=== PATIENT | female | born 1995 | race Two or more races ===

== ENCOUNTER 2017-06-07 19:06 | Emergency (ER) | payer OTHER ==
[~2017-06-07] VITALS: Ht 157.5 cm; Wt 64.4 kg
[~2017-06-07 19:06] MED LIST: METR500T PO; NAPR500T8 PO; ONDA4TAB12 PO; SULF1TAB24 PO
--- NOTE | 2017-06-07 19:12 | ED.ADGEN ---
Past History Past Medical History: No Pertinent History Past Surgical History: No Surgical History Alcohol Use: Rarely Drug Use: None Adult General Chief Complaint Chief Complaint " I was just setting on the couch... Tuesday... and my Rt. knee started hurting.. right here... the knee bone... I don't think I hurt it or any thing.. It hurt before .. but never this long..." HPI HPI Patient is a 22 year old female who presents with above hx and possible Rt. knee injury or inflammatory disorder. Pt. has had intermittent episodes of right knee pain. No specific history of injury. Knee is obviously swollen but no fluid wave. Can do straight leg lift. Distal neurovascular intact. Does have a limp with right knee. No specific isolation of contralateral, anterior cruciate and posterior cruciate do not have isolated pain. No click with range of motion. Knee is not warmer than the Lt. knee. Review of Systems Review of Systems Constitutional: Denies fever or chills [] Eyes: Denies change in visual acuity, redness, or eye pain [] HENT: Denies nasal congestion or sore throat [] Respiratory: Denies cough or shortness of breath [] Cardiovascular: No additional information not addressed in HPI [] GI: Denies abdominal pain, nausea, vomiting, bloody stools or diarrhea [] : Denies dysuria or hematuria [] Musculoskeletal: Denies back pain or joint pain []Complaints of Rt Knee pain. Integument: Denies rash or skin lesions [] Neurologic: Denies headache, focal weakness or sensory changes [] Endocrine: Denies polyuria or polydipsia [] All other systems were reviewed and found to be within normal limits, except as documented in this note. Family History Family History Hx arthritis in family Current Medications Current Medications Current Medications Medications (Trade) Dose Ordered Sig/Meagan Start Time Stop Time Status Last Admin Dose Admin Ceftriaxone Sodium 2 gm/ Sodium Chloride 100 ml @ 200 mls/hr 1X ONCE 06/07/17 21:15 06/07/17 21:15 DC Ceftriaxone Sodium (Rocephin Im) 2 gm 1X ONCE 06/07/17 21:30 06/07/17 21:31 DC 06/07/17 21:38 2 GM Ceftriaxone Sodium (Rocephin) 2 gm 1X ONCE 06/07/17 21:15 06/07/17 21:16 DC See nursing for home meds. Allergies Allergies Allergies Coded Allergies Type Severity Reaction Last Updated Verified No Known Drug Allergies 09/12/15 No Physical Exam Physical Exam Constitutional: Moderately acute distress, non-toxic appearance. [] HENT: Normocephalic, atraumatic, bilateral external ears normal, oropharynx moist, no oral exudates, nose normal. [] Eyes: PERRLA, EOMI, conjunctiva normal, no discharge. [] Neck: Normal range of motion, no tenderness, supple, no stridor. [] Cardiovascular:Heart rate regular rhythm, no murmur [] Lungs & Thorax: Bilateral breath sounds clear to auscultation [] Abdomen: Bowel sounds normal, soft, no tenderness, no masses, no pulsatile masses. [] Skin: Warm, dry, no erythema, no rash. [] Back: No tenderness, no CVA tenderness. [] Extremities: Rt. knee tenderness, no cyanosis, no clubbing, ROM intact, Rt knee edema. [] Neurologic: Alert and oriented X 3, normal motor function, normal sensory function, no focal deficits noted. [] Psychologic: Affect normal, judgement normal, mood normal. [] Current Patient Data Lab Results Laboratory Tests Test 06/07/17 19:21 06/07/17 19:30 06/07/17 19:37 06/07/17 20:00 White Blood Count 8.9 x10^3/uL (4.0-11.0) Red Blood Count 4.26 x10^6/uL (3.50-5.40) Hemoglobin 12.2 g/dL (12.0-15.5) Hematocrit 35.5 % (36.0-47.0) L Mean Corpuscular Volume 83 fL (79-100) Mean Corpuscular Hemoglobin 29 pg (25-35) Mean Corpuscular Hemoglobin Concent 34 g/dL (31-37) Red Cell Distribution Width 13.1 % (11.5-14.5) Platelet Count 315 x10^3/uL (140-400) Neutrophils (%) (Auto) 62 % (31-73) Lymphocytes (%) (Auto) 29 % (24-48) Monocytes (%) (Auto) 8 % (0-9) Eosinophils (%) (Auto) 1 % (0-3) Basophils (%) (Auto) 0 % (0-3) Neutrophils # (Auto) 5.5 x10^3uL (1.8-7.7) Lymphocytes # (Auto) 2.6 x10^3/uL (1.0-4.8) Monocytes # (Auto) 0.7 x10^3/uL (0.0-1.1) Eosinophils # (Auto) 0.1 x10^3/uL (0.0-0.7) Basophils # (Auto) 0.0 x10^3/uL (0.0-0.2) Urine Collection Type Unknown Urine Color Yellow Urine Clarity Hazy Urine pH 6.0 Urine Specific [place] 1.025 Urine Protein Neg (NEG-TRACE) Urine Glucose (UA) Neg mg/dL (NEG) Urine Ketones (Stick) Neg mg/dL (NEG) Urine Blood Small (NEG) Urine Nitrite Neg (NEG) Urine Bilirubin Neg (NEG) Urine Urobilinogen Dipstick 0.2 mg/dL (0.2 mg/dL) Urine Leukocyte Esterase Trace (NEG) Urine RBC 1-2 /HPF (0-2) Urine WBC 5-10 /HPF (0-4) Urine Squamous Epithelial Cells Few /LPF Urine Bacteria Mod /HPF (0-FEW) Urine Mucus Slight /LPF POC Urine HCG, Qualitative hcg negative (Negative) Sodium Level 141 mmol/L (136-145) Potassium Level 3.7 mmol/L (3.5-5.1) Chloride Level 106 mmol/L (98-107) Carbon Dioxide Level 25 mmol/L (21-32) Anion Gap 10 (6-14) Blood Urea Nitrogen 10 mg/dL (7-20) Creatinine 0.5 mg/dL (0.6-1.0) L Estimated GFR (Cockcroft-Gault) 155.7 BUN/Creatinine Ratio 20 (6-20) Glucose Level 116 mg/dL (70-99) H Uric Acid 3.6 mg/dL (2.6-6.0) Calcium Level 8.6 mg/dL (8.5-10.1) Total Bilirubin 0.2 mg/dL (0.2-1.0) Aspartate Amino Transferase (AST) 11 U/L (15-37) L Alanine Aminotransferase (ALT) 11 U/L (14-59) L Alkaline Phosphatase 51 U/L (46-116) Total Protein 7.1 g/dL (6.4-8.2) Albumin 3.5 g/dL (3.4-5.0) Albumin/Globulin Ratio 1.0 (1.0-1.7) EKG EKG [] Radiology/Procedures Radiology/Procedures [] Course & Med Decision Making Course & Med Decision Making Pertinent Labs and Imaging studies reviewed. (See chart for details) Pt. to wear brenda wrap, ice packs, crutches,elevation and follow up with orthro at [facility]. Take Keflex 500 three times a day and follow up UA and pending labs. [] Final Impression Final Impression 1. Rt Knee- Pain[] 2. UTI Problems: Dragon Disclaimer Dragon Disclaimer This electronic medical record was generated, in whole or in part, using a voice recognition dictation system. HARMAN LE MD Jun 07, 2017 19:12
[2017-06-07] MEDS ORDERED: HYDR-79 PO (19:30)
[2017-06-07 20:13] LABS: BACTERIA,URINE MOD /HPF (0-FEW); BILIRUBIN,URINE NEG (NEG); CLARITY,URINE HAZY; COLOR,URINE YELLOW; GLUCOSE,URINE NEG (NEG); NITRITE,URINE NEG (NEG); SQUAMOUS EPITHELIAL CELL,UR FEW /LPF; UROBILINOGEN,URINE 0.2 mg/dL (0.2 mg/dL)
[2017-06-07 20:24] LABS: BASO % 0 % (0-3); EOS # 0.1 x10^3/uL (0.0-0.7); EOS % 1 % (0-3); HEMATOCRIT 35.5 % (36.0-47.0); HEMOGLOBIN 12.2 g/dL (12.0-15.5); LYMPH # 2.6 x10^3/uL (1.0-4.8); LYMPH % 29 % (24-48); MEAN CORPUSCULAR HEMOGLOBIN 29 pg (25-35); MEAN CORPUSCULAR HGB CONC 34 g/dL (31-37); MEAN CORPUSCULAR VOLUME 83 fL (79-100); MONO # 0.7 x10^3/uL (0.0-1.1); MONO % 8 % (0-9); NEUT # 5.5 x10^3uL (1.8-7.7); NEUT % 62 % (31-73); PLATELET COUNT 315 x10^3/uL (140-400); RED BLOOD COUNT 4.26 x10^6/uL (3.50-5.40); RED CELL DISTRIBUTION WIDTH 13.1 % (11.5-14.5); WHITE BLOOD COUNT 8.9 x10^3/uL (4.0-11.0)
[2017-06-07 20:33] LABS: ALBUMIN 3.5 g/dL (3.4-5.0); CALCIUM 8.6 mg/dL (8.5-10.1); CREATININE 0.5 mg/dL (0.6-1.0); GFR 155.7; POTASSIUM 3.7 mmol/L (3.5-5.1); TOTAL BILIRUBIN 0.2 mg/dL (0.2-1.0); TOTAL PROTEIN 7.1 g/dL (6.4-8.2); URIC ACID 3.6 mg/dL (2.6-6.0)
[2017-06-07] MEDS ORDERED: CEPH-264 PO (21:06)
[2017-06-07] MEDS ORDERED: FLUC150T PO (21:06)
[2017-06-07] MEDS ORDERED: cefTRIAXone IV Push 2 GM VIAL. IVP ONE (21:15)
[2017-06-07] MEDS ORDERED: cefTRIAXone IV Push 1 GM VIAL. IVP ONE (21:15)
[2017-06-07] MEDS ORDERED: cefTRIAXone IM 1 GM VIAL IM ONE (21:30)
[2017-06-07 21:47] VITALS: BP 99/61
--- NOTE | 2017-06-08 07:29 | RAD ---
Right knee radiograph 06/07/2017 9:21 PM Indication: Right knee pain and swelling Comparison: None available Technique: 4 views of the right knee are provided. Findings: There is no acute fracture or dislocation. There is a moderate knee joint effusion. No joint space narrowing. No soft tissue swelling. No osseous erosion or soft tissue gas. Bone mineralization is within normal limits. Impression: No acute fracture or dislocation. There is a moderate knee joint effusion. If there is concern for internal derangement, further evaluation with MRI may be of benefit.
[2017-06-08 21:08] LABS: RHEUMATOID FACTOR <10.0 IU/mL (0.0-13.9)
[2017-06-09 10:10] LABS: HCV ANTIBODY <0.1 s/co ratio (0.0-0.9); HEP A IGM ABDY Negative (Negative)
[2017-06-09 22:12] LABS: CYCLIC CITRULLIN PEP AB 5 units (0-19)
[2017-06-10 18:07] LABS: ANA INTERP Negative (.)
== END 2017-06-07 21:47 | disposition home or self-care (01) ==
LOC: ER 19:06
DX: M25.561 Pain in right knee (principal); N39.0 Urinary tract infection, site not specified
CPT/HCPCS: 36415; 73564; 80053; 80074; 81001; 81025; 84550; 85025; 86038; 86200; 86431; 86593; 87086; 87491; 87591; 96372; 99285; J0696

== ENCOUNTER 2018-03-14 08:03 | Emergency (ER) | payer OTHER ==
[~2018-03-14] VITALS: Ht 160 cm; Wt 68.0 kg
[~2018-03-14 08:03] MED LIST changes: +CEPH-264 PO; +FLUC150T PO; +HYDR-1179 PO
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
--- NOTE | 2018-03-14 09:38 | RAD ---
PQRS Compliance Statement: One or more of the following individualized dose reduction techniques were utilized for this examination: 1. Automated exposure control 2. Adjustment of the mA and/or kV according to patient size 3. Use of iterative reconstruction technique CT HEAD AND CERVICAL SPINE WITHOUT CONTRAST History: Fall this AM hitting back of head and left posterior neck. No LOC, nausea or vomiting. Pain left neck. Visual disturbance left eye. Comparison: None. Procedure: Axial images are obtained of the head from the skull base through the vertex without IV contrast. Noncontrast helical CT of the cervical spine was performed. Axial, sagittal, and coronal reconstructions were obtained. Findings: The ventricles and sulci are normal for the patient's age. No mass-effect, midline shift, hemorrhage or obvious acute infarction is identified. Basilar cisterns are patent. Bone windows demonstrate no significant calvarial abnormality. The visualized paranasal sinuses are clear. Mastoid air cells are well aerated. There is no evidence of acute fracture or acute malalignment of the cervical spine. Straightening of normal cervical lordosis may be positional or due to muscle spasm. There is no disc space narrowing. The alignment is maintained. No perched or jumped facets. No significant narrowing of the central canal is identified. Probable mild soft tissue swelling of the right of midline posterior suboccipital soft tissues. The visualized lung apices are clear. IMPRESSION: 1. No acute intracranial abnormality. 2. No acute fracture of the cervical spine. Electronically signed by: Errol Ruiz MD (03/14/2018 9:35 AM) [id number]
[2018-03-14] MEDS ORDERED: IBUP800T19 PO (09:55)
[2018-03-14 10:06] VITALS: BP 101/70
== END 2018-03-14 10:00 | disposition home or self-care (01) ==
LOC: ER 08:03
DX: S16.1XXA Strain of muscle, fascia and tendon at neck level, initial encounter (principal); S09.90XA Unspecified injury of head, initial encounter; W03.XXXA Other fall on same level due to collision with another person, initial encounter; Y93.89 Activity, other specified; Y92.89 Other specified places as the place of occurrence of the external cause; Y99.8 Other external cause status
CPT/HCPCS: 70450; 72125; 99284-25